=== PATIENT | female | born 1990 | race Caucasian/White ===

== ENCOUNTER 2017-02-23 20:57 | Inpatient (IN) | payer OTHER ==
[~2017-02-23 20:57] MED LIST: Oxytocin 30 units/LR 500ML 30 U/500 ML BAG IV ONE
[2017-02-23 21:26] VITALS: BMI 29.8
--- NOTE | 2017-02-23 21:30 | OBHP ---
Datetime: 02/23/2017 21:29 IP Adm Impression: Term, intrauterine ; Active labor IP Admit Plan: Admit to unit; Initiate labor protocol; Initiate labor augmentation protocol HEENT - PN: Normal General - PN: Normal IP Indication for Induction: Not Applicable IP Chief Complaint: Uterine contractions; Vaginal bleeding Datetime: 02/23/2017 21:24 Admit Comment, IP Provider: cervical changes noted since yesterday and pt very uncortable Extremities - PN: Normal Abdomen - PN: Abnormal Back - PN: Normal Breast - PN: Normal Lungs - PN: Normal Heart - PN: Normal Thyroid - PN: Normal Neurologic - PN: Normal Presentation-Admit: cephalic FHR - Baseline A Provider: 140's Membranes, Provider: Intact Contraction Comments Provider: 3-5 min Comments, ACOG Physical Exam: Abd gravid at 37cm above sp NT, ext no calf tenderness Gestation - Est Wks by US: 40wks NICHD Variability Prov Fetus A: Moderate 6-25bpm NICHD Accel Fetus A IP Provider: 10X10 NICHD Decel Fetus A IP Provider: None Dilatation, Provider: 2cm Effacement, Provider: 60% Station, Provider: -2 Genitourinary Exam: Normal DTRs - PN: Normal
--- NOTE | 2017-02-23 21:34 | OBADHP ---
Datetime: 02/23/2017 21:29 Admit Comment, IP Provider: cervical changes from yesterday and pt very unconfortable, will admit an d possible augument Extremities - PN: Normal Abdomen - PN: Abnormal Back - PN: Normal Breast - PN: Normal Lungs - PN: Normal Heart - PN: Normal Thyroid - PN: Normal Neurologic - PN: Normal HEENT - PN: Normal General - PN: Normal Presentation-Admit: cephalic FHR - Baseline A Provider: 140's Membranes, Provider: Intact Comments, ACOG Physical Exam: Abd at term NT, fundus at term, ext no calf tenderness Gestation - Est Wks by US: 40+ IP Hx Assessment: The History has been Reviewed and is Current IP Chief Complaint: Uterine contractions; Vaginal bleeding NICHD Variability Prov Fetus A: Moderate 6-25bpm NICHD Accel Fetus A IP Provider: 10X10 NICHD Decel Fetus A IP Provider: None Dilatation, Provider: 2cm Effacement, Provider: 60% Station, Provider: -2 Genitourinary Exam: Normal DTRs - PN: Normal IP Adm Impression: Term, intrauterine ; Active labor IP Admit Plan: Admit to unit; Initiate labor protocol; Initiate labor augmentation protocol Datetime: 02/23/2017 21:24 Contraction Comments Provider: 3-5 min
[2017-02-23 21:35] VITALS: BP 120/78; PULSE 74; RESP 18; TEMP 98.8
[2017-02-23 22:37] LABS: BASO % 0.1 % (0.0-2.0); EOS % 0.4 % (0.0-4.0); HEMATOCRIT 39.1 % (34.0-47.0); LYMPH # 2.3 K/uL (1.0-4.3); LYMPH % 23.3 % (20.0-40.0); MEAN CELL VOLUME 73.6 fl (81.0-99.0); MEAN CORPUSCULAR HGB CONC 31.2 g/dL (33.0-37.0); MEAN PLATELET VOLUME 10.8 fl (7.2-11.7); MONO # 0.6 K/uL (0.0-0.8); MONO % 5.8 % (0.0-10.0); NEUT # 6.9 K/uL (1.8-7.0); NEUT % 70.4 % (50.0-75.0); RED CELL DISTRIBUTION WIDTH 15.3 % (11.5-14.5); WHITE BLOOD COUNT 9.8 K/uL (4.8-10.8)
[2017-02-23] MEDS ORDERED: Oxytocin 30 units/LR 500ML 30 U/500 ML BAG IV ONE ×2 (22:48→22:59)
[2017-02-23] MEDS: Lactated Ringer's 1,000 ML IV SCH (23:00)
[2017-02-23 23:36] LABS: RBC URINE 2 /hpf (0-3); URINE BILIRUBIN NEGATIVE (NEGATIVE); URINE BLOOD NEGATIVE (NEGATIVE); URINE COLOR YELLOW (YELLOW); URINE GLUCOSE (UA) NEG (Normal); URINE KETONE 80 mg/dL (NEGATIVE); URINE LEUKOCYTE ESTERASE NEG Leu/uL (Negative); URINE PROTEIN NEGATIVE (NEGATIVE); URINE UROBILINOGEN 0.2-1.0 mg/dL (0.2-1.0); WBC URINE 1 /hpf (0-5)
[2017-02-24] MEDS: Lactated Ringer's 1,000 ML IV SCH ×3 (04:53→11:00)
[2017-02-24] MEDS ORDERED: Fentanyl/Bupivacaine HCl 250 ML EPI ONE (05:46)
[2017-02-24] MEDS ORDERED: Bupivacaine HCl 0.25% PF (10 ml) Inj ONE ×2 (09:42→10:11)
[2017-02-24] MEDS ORDERED: Nalbuphine 20 mg/ml Inj (1 ml) IVP PRN (14:38)
[2017-02-24] MEDS ORDERED: cefOXitin Sodium 1 GM in Sodium Chloride 0.9% 100 ML IVPB ONE (18:55)
[2017-02-24] MEDS ORDERED: Phenylephrine 10 mg/ml Inj ONE (19:05)
[2017-02-24] MEDS ORDERED: Morphine 1 mg/ml preservative-free Inj(Duramorph) ONE (19:05)
[2017-02-24] MEDS ORDERED: Sodium Chloride 0.9% 10 ML IV ONE (19:05)
[2017-02-24] MEDS ORDERED: ePHEDrine 50 mg/ml Inj ONE (19:05)
[2017-02-24] MEDS ORDERED: Oxytocin 30 units/LR 500ML 30 U/500 ML BAG IV ONE ×2 (19:10→20:00)
[2017-02-24] MEDS: cefOXitin Sodium 1 GM in Sodium Chloride 0.9% 100 ML IVPB SCH (19:30)
[2017-02-24] MEDS ORDERED: Oxycodone/Acetaminophen 5/325 mg Tab PO PRN (20:32)
[2017-02-24] MEDS ORDERED: DiphenhydrAMINE 50 mg/ml Inj IVP PRN (20:32)
--- NOTE | 2017-02-24 20:46 | OBDS ---
DELIVERY PERSONNEL Delivery Doctor: Ronak Botello MD Pulp And Paper Tester: Estee Romero RN/renzo orta RN Anesthesiologist: Johnathan Rao MD MATERNAL INFORMATION Delivery Anesthesia: Epidural Medications in Delivery: pitocin and mafoxin 1 gram Estimated Blood Loss (ml): 800cc Placenta Cultured: No Maternal Complications: None Provider Comments: see dictated surgeons note LABOR SUMMARY EDC: 02/22/2017 00:00 No. Babies in Womb: 1 Attempted: No Labor Anesthesia: Epidural LABOR INFORMATION Reason for Induction: Not Applicable Oxytocin: Induction Group B Beta Strep: Negative Steroids Given: None Reason Steroids Not Administered: Not Applicable MEMBRANES Membranes Rupture Method: Artificial Rupture of Membranes: 02/24/2017 20:02 Length of Rupture (hrs): 0.00 Amniotic Fluid Color: Clear Amniotic Fluid Amount: Scant Amniotic Fluid Odor: None STAGES OF LABOR Stage 3 hrs: 0 Stage 3 min: 1 VAGINAL DELIVERY Episiotomy: None Laceration Extension: N/A Laceration Type: None Sponge Count Correct: N/A Sharps Count Correct: N/A CSECTION DELIVERY Primary Indication: Failure of Descent Secondary Indication: arrest of dilatation CSection Urgency: Emergency CSection Incidence: Primary Labor: Labor Elective: Nonelective CSection Incision: Lower Uterine Transverse Uterine Closure: Double-layer closure BABY A INFORMATION Infant Delivery Date/Time: 02/24/2017 20:02 Method of Delivery: Born in Route : No : N/A Forceps: N/A Vacuum Extraction: N/A Shoulder Dystocia : No SHOULDER DYSTOCIA BABY A Infant Delivery Date/Time: 02/24/2017 20:02 PRESENTATION/POSITION BABY A Presentation: Cephalic Cephalic Presentation: Vertex Breech Presentation: N/A PLACENTA INFORMATION BABY A Placenta Delivery Time : 02/24/2017 20:03 Placenta Method of Delivery: Manual Removal Placenta Status: Delivered SCORES BABY A Heart Rate 1 min: >100 bpm Resp Effort 1 min: Good Cry Reflex Irritability 1 min: Cough or Sneeze or Pulls Away Muscle Tone 1 min: Active Motion Color 1 min: Body [place], Extremities Blue Resuscitation Effort 1 min: N/A SCORE 1 MIN: 9 Heart Rate 5 min: >100 bpm Resp Effort 5 min: Good Cry Reflex Irritability 5 min: Cough or Sneeze or Pulls Away Muscle Tone 5 min: Active Motion Color 5 min: Body [place], Extremities Blue Resuscitation Effort 5 min: N/A SCORE 5 MIN: 9 INFANT INFORMATION BABY A Gestational Age at Delivery: 40.0 Gestational Status: 2 Outcome : Liveborn Infant Condition : Stable Sex: Male IDENTIFICATION/MEDS BABY A ID Band Number: [id number] ID Band Location: Right Leg; Right Arm WEIGHT/LENGTH BABY A Infant Birthweight (gms): 3710 Infant Weight (lb): 8 Weight (oz): 3 CORD INFORMATION BABY A No. Cord Vessels: 3 Nuchal Cord : Around Neck x2, Loose Cord Blood Taken: Yes Infant Suction: Mouth; Nose ASSESSMENT BABY A Infant Complications: None Physical Findings at Delivery: Within Normal Limits Respirations: Appears Normal Television Presenter/ALS Called : No Infant Care By: DR Rudd Transferred To: Remains with Mother
[2017-02-25] MEDS: cefOXitin Sodium 1 GM in Sodium Chloride 0.9% 100 ML IVPB SCH ×3 (03:49→20:24)
[2017-02-25 06:49] LABS: HEMATOCRIT 33.2 % (34.0-47.0); MEAN CORPUSCULAR HGB CONC 31.5 g/dL (33.0-37.0); RED CELL DISTRIBUTION WIDTH 15.1 % (11.5-14.5); WHITE BLOOD COUNT 12.4 K/uL (4.8-10.8)
--- NOTE | 2017-02-25 08:19 | OBPPN ---
Datetime: 02/25/2017 08:13 PP Pain Prov: Within normal limits PP Pain Prov comment: Denies SOB chest or leg pains PP Nausea Prov: Denies PP Flatus Prov: No PP BM Prov: No PP Breasts Prov: Normal PP Lungs Prov: Normal PP Abdomen/Uterus Prov: Abnormal PP Lochia Prov: Normal PP Vulva/Perineum Prov: Normal PP CVA Tenderness Prov: Normal PP Extremities Prov: Normal PP C/S Incision Prov: Normal PP Progress Prov: Normal PP Comments Phys Exam Prov: Abd soft not distended fundus firm at umb. Dressing intact no sign of a ctive bleeding. Venodyne in place, no calf tenderness. PP Impression Prov: Normal progression PP Plan Prov: Continue present management PP Progress Note Prov: will get mannual platellet count. OOB to chair with help Increase diet as to lerated IP PP Procedures: None
[2017-02-25] MEDS: Oxycodone/Acetaminophen 5/325 mg Tab PO PRN ×2 (13:45→21:55)
[2017-02-26] MEDS: Oxycodone/Acetaminophen 5/325 mg Tab PO PRN ×4 (03:49→23:50)
--- NOTE | 2017-02-26 11:10 | OBPPN ---
Datetime: 02/26/2017 11:06 PP Pain Prov: Within normal limits PP Nausea Prov: Denies PP Flatus Prov: Yes PP BM Prov: No PP Breasts Prov: Normal PP Heart Prov: Normal PP Lungs Prov: Normal PP Abdomen/Uterus Prov: Normal PP Lochia Prov: Normal PP Vulva/Perineum Prov: Normal PP CVA Tenderness Prov: Normal PP Extremities Prov: Normal PP C/S Incision Prov: Normal PP Progress Prov: Normal PP Impression Prov: Normal progression PP Plan Prov: Continue present management PP Progress Note Prov: stable pod 1continue dc avitia oob with assistance,increase diet as tolerated, may shower ,dc dressing incision clean and healing IP PP Procedures: None
[2017-02-27] MEDS: Oxycodone/Acetaminophen 5/325 mg Tab PO PRN (05:47)
--- NOTE | 2017-02-27 10:36 | OBPPN ---
Datetime: 02/27/2017 10:32 PP Pain Prov: Within normal limits PP Pain Prov comment: No SOB, chest pains or leg pains PP Nausea Prov: Denies PP Flatus Prov: Yes PP BM Prov: Yes PP Breasts Prov: Normal PP Lungs Prov: Normal PP Abdomen/Uterus Prov: Abnormal PP Lochia Prov: Normal PP Vulva/Perineum Prov: Normal PP CVA Tenderness Prov: Normal PP Extremities Prov: Normal PP C/S Incision Prov: Normal PP Progress Prov: Normal PP Comments Phys Exam Prov: Abd soft not distended fundus firm below the umb. Incision clean and dr y no suppt or discharge Prolene in place. Ext no calf tenderness PP Impression Prov: Normal progression PP Plan Prov: Discharge PP Progress Note Prov: d/C home and appt to office 1 wk IP PP Procedures: None Vital Signs Provider PP: Reviewed
--- NOTE | 2017-02-27 10:38 | OBDCSUM ---
Datetime: 02/27/2017 10:34 Discharged to, Provider: Home Follow up at, Provider: Dr Botello Disch Instr Activity: Bedrest; May be up to bathroom; May be up for meals; May Shower Disch Instr Diet: Regular Discharge Instructions, Provider: Routine instructions given Discharge Diagnosis, Provider: Term Delivered Discharge Time: 02/27/2017 10:34 Follow up in weeks, Provider: 1 wk Disch Referrals: None Contraception discussed, Prov: Yes Disch Activity Restrictions: No exercising; No lifting; No driving; Minimize walking; Minimize stair -climbing; No sexual activity; Nothing in vagina - [place], tampons, douche Discharge Comment, Provider: rx for percocet given Continue PNC vit and iron Contraception after Delivery: Undecided
--- NOTE | 2017-02-27 10:40 | OP ---
PROCEDURE DATE: 02/24/2017 PREOPERATIVE DIAGNOSES: 1. at 40 weeks' gestation. 2. Arrest of dilatation, failure of descent. POSTOPERATIVE DIAGNOSES: 1. at 40 weeks' gestation. 2. Arrest of dilatation, failure of descent. 3. Nuchal cord x 2. PROCEDURE PERFORMED: Primary low transverse segment section. SURGEON: Darryn Botello MD. HUMAN RESOURCES OPERATIONS COORDINATOR: Dr. Gallagher who was there for the entire duration of the case. Licensed Master Social Worker needed in positioning the patient, delivery of the baby, opening and closure of the abdomen. ANESTHESIA USED: Epidural patchy and spinal per Dr. Rao. ESTIMATED BLOOD LOSS: 800 mL. DRAINS USED: None. REPLACEMENTS USED: None. FINDINGS: 1. Delivered living baby boy. Baby appears term. Baby cries spontaneously. Pediatrics in attendance. scores of 9 and 9. 2. Nuchal cord x 2, loose. 3. Placenta complete and intact. 4. Amniotic fluid clear. 5. Both tubes and ovaries appear grossly within normal limits to inspection bilaterally. PROCEDURE: The patient was taken to the operating room and placed on the operating table in a supine position with an indwelling Gray catheter in the bladder draining clear fluid. At this time, Venodyne boots were applied to both legs, and anesthesia was augmented, but found to be patchy, and then spinal anesthesia was then inserted. Following this, the patient was then replaced in a supine position. The abdomen was then draped and prepped in the usual sterile manner. Anesthesia tested and found to be well secure, and a Pfannenstiel incision was then made using sharp dissection 2 fingerbreadths above the symphysis pubis. The incision was then extended down to subcutaneous tissue also using sharp dissection. At this time, we then proceeded to identify the fascia. Fascia was then entered at the midline. Incision in the fascia was then extended laterally in each direction. Rectus muscle was then identified, was then entered at the midline incision, and the rectus muscle revealed the peritoneal layer, which was then picked up using 2 Verenice clamps and retracted superiorly, and then entered using sharp dissection. Incision in the peritoneum was then extended superiorly and inferiorly under direct visualization. Following this, we then proceeded to identify the bladder, which was then retracted inferiorly using the [place] retractor. Following this, we then proceeded to identify the low transverse segment of the uterus. The visceral peritoneum covering this area was then entered using blunt dissection, a bladder flap was then created and retracted inferiorly using the same Yanci retractor and incision made in the low transverse segment of the uterus. Upon entering the uterine cavity, we then proceeded to notice that clear fluid noted to be present. At this time, we then proceeded to extending the incision laterally in each direction using bandage scissors. Using a manual scooping procedure, a living baby boy was then delivered. The baby was immediately and aggressively aspirated using bulb suction. The baby cried spontaneously. There were two loops of cord around the baby's neck which were undone prior to full delivery. The umbilicus was then doubly clamped, cut, and the baby handed to the pediatric personnel who were standing by. Following this, the placenta was then delivered complete and intact. The uterus was then exteriorized to provide better visualization, and the uterine cavity was thoroughly cleaned using moist lap pads. The uterus massaged and contracted well. At this time, we then proceeded to secure the uterine incision using multiple T clamps, and the uterine incision was then approximated using 0 Vicryl suture in a continuous interlocking manner. A second layer was also applied using 0 Vicryl suture in a continuous manner. Hemostasis checked and found to be well secure. The bladder flap was then approximated using a 2-0 Vicryl in a continuous manner. All operative areas checked, hemostatically secure, and the pelvic cavity was then irrigated using saline solution. All operative areas checked, hemostatically secure, and the uterus was allowed to retract back into its original position. Following this, we then proceeded to close the abdomen after making sure that all operative areas where hemostatically secure. The peritoneum was approximated using 0 Vicryl suture in a continuous manner, and the rectus muscle as well. At this time, the fascia was then identified, was then approximated using a 1 Vicryl suture in a continuous manner. Fascia was then checked and found to be free of defects. Subcutaneous tissue was then irrigated using saline solution and approximated using several interrupted 2-0 plain. The skin was then approximated using 3-0 Prolene in a subcuticular fashion. Steri-Strips were then applied. Clear fluid noted to be present in the Gray bag. Sponge, instrument, and needle counts were correct x 3. Darryn Botello MD cc: 71 TT: 02/27/2017 10:39:24 jn MTDD
== END 2017-02-27 13:40 | disposition home or self-care (01) | DRG 766 ==
LOC: H.EROB2 20:57 → H.L&D 21:19 → H.OB/GYN 02-24 23:26
PROVIDERS: ADMIT Specialist; ATTEND Specialist
PROC: 4A1HXCZ Monitoring of Products of Conception, Cardiac Rate, External Approach (ICD-10-PCS; 2017-02-23)
PROC: 10D00Z1 Extraction of Products of Conception, Low, Open Approach (ICD-10-PCS; principal; 2017-02-24)
DX: O32.4XX0 Maternal care for high head at term, not applicable or unspecified (principal); O66.9 Obstructed labor, unspecified; O69.81X0 Labor and delivery complicated by cord around neck, without compression, not applicable or unspecified; Z37.0 Single live birth; Z3A.40 40 weeks gestation of pregnancy